=== PATIENT | male | born 1995 | race African-American/Black ===

== ENCOUNTER 2017-10-07 14:35 | Emergency (ER) | payer OTHER ==
[2017-10-07] MEDS: NAPROXEN 250 MG TAB PO (15:30)
[2017-10-07 16:27] LABS: CPK CREATINE PHOSPHOKINASE 205 U/L (39-308); TROPONIN I < 0.02 NG/ML (< 0.10)
[2017-10-07 16:28] LABS: CK-MB VALUE MASS < 1.0 NG/ML (<3.6); MB/CK RELATIVE INDEX 0.48 (< OR =4)
== END 2017-10-07 17:06 | disposition home or self-care (01) ==
LOC: M ED 14:35
DX: M94.0 Chondrocostal junction syndrome [Tietze] (principal)
CPT/HCPCS: 71046

== ENCOUNTER 2019-12-12 08:12 | Emergency (ER) | payer OTHER ==
[~2019-12-12] VITALS: Ht 185.4 cm; Wt 138.6 kg
[2019-12-12 08:12] VITALS: BP 177/82
[~2019-12-12 08:12] MED LIST: NAPR-885 PO
[2019-12-12] MEDS ORDERED: ibuprofen 800 (08:17)
[2019-12-12] MEDS ORDERED: CIPRODEX OTIC (09:04)
== END 2019-12-12 09:10 | disposition home or self-care (01) ==
LOC: M ED 08:12
DX: H60.91 Unspecified otitis externa, right ear (principal)

== ENCOUNTER 2023-09-04 19:42 | Emergency (ER) | payer OTHER ==
[~2023-09-04] VITALS: Ht 188 cm; Wt 148.4 kg
[~2023-09-04 19:42] MED LIST changes: +CIPR7.5D5 OTIC; +ibuprofen 800
[2023-09-04 20:15] VITALS: TEMP 97.8
[2023-09-04 20:20] LABS: BASO % 0.2 % (0.0-1.0); EOS # 0.1 10^3/uL (0.0-0.5); EOS % 0.6 % (0.0-3.0); HEMATOCRIT 47.8 % (42.0-52.0); HEMOGLOBIN 17.2 g/dl (13.5-17.5); LYMPH # 2.1 10^3/uL (1.5-5.0); LYMPH % 24.2 % (24.0-44.0); MEAN CORPUSCULAR HEMOGLOBIN 30.6 pg (27.0-33.0); MEAN CORPUSCULAR VOLUME 84.9 fl (80.0-96.0); MONO # 0.6 10^3/uL (0.0-0.8); MONO % 7.2 % (2.0-8.0); NEUTROPHILS # 5.7 10^3/uL (1.5-8.5); NEUTROPHILS % 67.6 % (36.0-66.0); PLATELET COUNT, AUTOMATED 427 10^3/uL (150-450); RED BLOOD COUNT 5.63 10^6/uL (4.30-6.10); WHITE BLOOD COUNT 8.5 10^3/uL (4.0-10.0)
[2023-09-04 20:48] LABS: CK-MB VALUE MASS < 1.0 NG/ML (<3.6)
[2023-09-04 20:50] LABS: BLOOD UREA NITROGEN 12 MG/DL (9-23); CALCIUM LEVEL 9.5 MG/DL (8.5-10.1); CARBON DIOXIDE LEVEL 27 MMOL/L (20-31); CHLORIDE LEVEL 107 MMOL/L (98-107); CREATININE FOR GFR 0.88 MG/DL (0.70-1.30); GLOMERULAR FILTRATION RATE > 60.0 (>60); GLUCOSE, FASTING 115 MG/DL (60-100); POTASSIUM SERUM 4.6 MMOL/L (3.5-5.1); SODIUM LEVEL 139 MMOL/L (136-145)
[2023-09-04 20:52] LABS: CPK CREATINE PHOSPHOKINASE 189 U/L (46-171); MB/CK RELATIVE INDEX 0.52 (< OR =4)
[2023-09-04 21:58] LABS: CK-MB VALUE MASS < 1.0 NG/ML (<3.6)
[2023-09-04 22:00] VITALS: BP 123/63; O2SAT 96
[2023-09-04 22:03] LABS: CPK CREATINE PHOSPHOKINASE 164 U/L (46-171)
== END 2023-09-04 22:08 | disposition home or self-care (01) ==
LOC: M ED 19:42
DX: R07.9 Chest pain, unspecified (principal); F10.10 Alcohol abuse, uncomplicated; I45.10 Unspecified right bundle-branch block; Z79.2 Long term (current) use of antibiotics; Z79.1 Long term (current) use of non-steroidal anti-inflammatories (NSAID)

== ENCOUNTER 2023-10-21 11:19 | Emergency (ER) | payer OTHER ==
[~2023-10-21] VITALS: Ht 185.4 cm; Wt 141.5 kg
[2023-10-21] MEDS ORDERED: AZIT-12 PO (11:39)
[2023-10-21] MEDS ORDERED: HOLTER MONITOR XX (14:19)
[2023-10-21 14:27] VITALS: BP 145/88; TEMP 98; O2SAT 100
== END 2023-10-21 14:28 | disposition home or self-care (01) ==
LOC: M ED 11:19
DX: R00.2 Palpitations (principal); B34.8 Other viral infections of unspecified site; F10.10 Alcohol abuse, uncomplicated; Z79.2 Long term (current) use of antibiotics

== ENCOUNTER → 2023-10-23 | Outpatient (CLI) | payer OTHER ==
[~2023-10-23] MED LIST changes: +AZIT-12 PO; +HOLTER MONITOR XX
== END ==
LOC: M EKG 10:02
PROVIDERS: ATTEND Physician Assistant Medical
DX: R00.2 Palpitations (principal); Z53.9 Procedure and treatment not carried out, unspecified reason

== ENCOUNTER → 2024-04-18 | Outpatient (REF) | payer OTHER ==
[2024-04-18 13:37] LABS: ALBUMIN 3.6 G/DL (3.2-5.2); ALKALINE PHOSPHATASE 53 U/L (40-129); ALT/SGPT 63 U/L (7.0-40); AST/SGOT 31 U/L (<34); BILIRUBIN,TOTAL 0.7 MG/DL (0.3-1.2); BLOOD UREA NITROGEN 10 MG/DL (9-23); CALCIUM LEVEL 9.3 MG/DL (8.5-10.1); CARBON DIOXIDE LEVEL 28 MMOL/L (20-31); CHLORIDE LEVEL 107 MMOL/L (98-107); CHOLESTEROL LEVEL 158 MG/DL (<200); CHOLESTEROL RISK RATIO 4.09 (<5); GLOMERULAR FILTRATION RATE > 60.0 (>60); GLUCOSE, FASTING 88 MG/DL (60-100); HDL CHOLESTEROL 38.6 MG/DL (>40); LDL CHOLESTEROL 107.6 MG/DL (<100); NON-HDL-C 119.4 MG/DL; POTASSIUM SERUM 4.5 MMOL/L (3.5-5.1); SODIUM LEVEL 140 MMOL/L (136-145); TOTAL PROTEIN 7.2 G/DL (5.7-8.2); TRIGLYCERIDES LEVEL 59 MG/DL (<150)
[2024-04-18 13:41] LABS: FREE T4 1.07 NG/DL (0.89-1.76); THYROID STIMULATING HORMONE 1.526 uIU/ML (0.55-4.78)
[2024-04-18 13:53] LABS: HEMOGLOBIN A1c 4.9 % (4.0-6.0)
== END ==
LOC: M LAB REF 13:15
PROVIDERS: ATTEND Family Medicine Addiction Medicine
DX: E66.9 Obesity, unspecified (principal); Z68.41 Body mass index [BMI] 40.0-44.9, adult

== ENCOUNTER → 2024-07-17 | Outpatient (REF) | payer OTHER ==
[2024-07-17 15:25] LABS: THYROID STIMULATING HORMONE 1.499 uIU/ML (0.55-4.78)
[2024-07-17 15:26] LABS: ALBUMIN 3.7 G/DL (3.2-5.2); ALKALINE PHOSPHATASE 60 U/L (40-129); ALT/SGPT 62 U/L (7.0-40); AST/SGOT 23 U/L (<34); BILIRUBIN,TOTAL 0.5 MG/DL (0.3-1.2); BLOOD UREA NITROGEN 13 MG/DL (9-23); CALCIUM LEVEL 9.3 MG/DL (8.5-10.1); CARBON DIOXIDE LEVEL 26 MMOL/L (20-31); CHLORIDE LEVEL 108 MMOL/L (98-107); CHOLESTEROL LEVEL 151 MG/DL (<200); CHOLESTEROL RISK RATIO 3.38 (<5); CREATININE FOR GFR 0.85 MG/DL (0.70-1.30); GLOMERULAR FILTRATION RATE > 60.0 (>60); GLUCOSE, FASTING 96 MG/DL (60-100); HDL CHOLESTEROL 44.6 MG/DL (>40); LDL CHOLESTEROL 95.8 MG/DL (<100); NON-HDL-C 106.4 MG/DL; POTASSIUM SERUM 4.5 MMOL/L (3.5-5.1); SODIUM LEVEL 143 MMOL/L (136-145); TOTAL PROTEIN 7.2 G/DL (5.7-8.2); TRIGLYCERIDES LEVEL 53 MG/DL (<150)
== END ==
LOC: M LAB REF 13:14
PROVIDERS: ATTEND Family Medicine Addiction Medicine
DX: R03.0 Elevated blood-pressure reading, without diagnosis of hypertension (principal)

== ENCOUNTER → 2024-10-24 | Outpatient (REF) | payer OTHER ==
[2024-10-24 13:34] LABS: ALKALINE PHOSPHATASE 46 U/L (40-129); ALT/SGPT 65 U/L (7.0-40); AST/SGOT 29 U/L (<34); BILIRUBIN,TOTAL 0.9 MG/DL (0.3-1.2); BLOOD UREA NITROGEN 14 MG/DL (9-23); CALCIUM LEVEL 9.2 MG/DL (8.5-10.1); CARBON DIOXIDE LEVEL 25 MMOL/L (20-31); CHLORIDE LEVEL 105 MMOL/L (98-107); CHOLESTEROL LEVEL 137 MG/DL (<200); CHOLESTEROL RISK RATIO 3.61 (<5); CREATININE FOR GFR 0.88 MG/DL (0.70-1.30); GLOMERULAR FILTRATION RATE > 90.0 (>60); GLUCOSE, FASTING 94 MG/DL (60-100); HDL CHOLESTEROL 37.9 MG/DL (>40); LDL CHOLESTEROL 84.5 MG/DL (<100); NON-HDL-C 99.1 MG/DL; POTASSIUM SERUM 4.4 MMOL/L (3.5-5.1); SODIUM LEVEL 140 MMOL/L (136-145); TOTAL PROTEIN 7.4 G/DL (5.7-8.2); TRIGLYCERIDES LEVEL 73 MG/DL (<150)
[2024-10-24 13:35] LABS: THYROID STIMULATING HORMONE 0.676 uIU/ML (0.55-4.78)
== END ==
LOC: M LAB REF 12:04
PROVIDERS: ATTEND Family Medicine Addiction Medicine
DX: R03.0 Elevated blood-pressure reading, without diagnosis of hypertension (principal)